=== PATIENT | female | born 1980 | race Caucasian/White ===

== ENCOUNTER → 2019-02-27 16:30 | Outpatient (CLI) | payer BC, SELFPAY ==
--- NOTE | 2019-02-27 16:42 | MRI_ITS ---
STUDY: MRI RIGHT MIDFOOT REASON FOR EXAM: Female, 38 years old. Dorsal foot pain x1 year. TECHNIQUE: Standardized fat and water weighted pulse sequences were obtained in all 3 orthogonal planes. COMPARISON: None. FINDINGS: The area of concern is marked, along the dorsal aspect of the first tarsometatarsal joint. There is dorsal spurring at the first tarsometatarsal joint. No joint effusion. Abnormal signal intensity in the subcutaneous tissues along the dorsal aspect of the joint, isointense to muscle on T1 and hypointense on T2-weighted imaging. This may represent fibrosis. There is mild deformity or pump due to the spur and soft tissue changes. TMT joints are otherwise unremarkable. Normal Lisfranc ligament. Tarsal articulations are unremarkable. Normal first through fifth metatarsi. Moderate effusion of the first metatarsophalangeal joint. Flexor and extensor tendons are intact. Normal subcutis adipose space. No soft tissue mass or cystic lesion. MRI/Lower Ext/No Jt/w/o IMPRESSION: 1. Moderate dorsal spurring at the first TMT joint in the area of concern, with associated mild soft tissue changes, possible fibrosis. 2. Moderate first MTP joint effusion. Electronically Signed: Myesha Rojas MD at 23:42 EDT Tel , Service support ,
== END ==
PROVIDERS: Family Provider Student in an Organized Health Care Education/Training Program; PCP Student in an Organized Health Care Education/Training Program; Referring Provider Podiatrist; Visit Provider Podiatrist
DX: R22.41 Localized swelling, mass and lump, right lower limb (principal)
CPT/HCPCS: 73718

== ENCOUNTER 2019-06-21 07:32 | Day surgery (SDC) | payer BC, SELFPAY ==
--- NOTE | 2019-06-21 | BON_PTH ---
PATIENT: CHRISTIANE ZHOU LOC: [facility] – [place] U#:[id number] AGE/SX: 39/F ROOM: RE06/21/[address]: Dr. Raoul Sanchez DPM : 1980 BED: DIS: 06/21/2019 SPEC #: [id number] RECD: 06/21/19 14:11 STATUS: MONI RECharlie #: [id number] RAYMOND: 06/21/19 00:[address]: Raoul Sanchez DEPT: SURGICAL PATHOLOGY RECD BY: Jey Junior ENTERED: 06/21/19 14:12 SP TYPE: Bone OTHR DR: Dr. Gonzales Borrero, DO Tissues: Bone of foot, NOS Procedures: Decalcification bone/plaque Surgery Specimen Level III HEADER OPERATION: Removal of bone spur from top of foot PRE-OP DIAGNOSIS: Right foot bone spur TISSUE SUBMITTED: Right foot bone spur MICROSCOPIC DIAGNOSIS Bone of right foot, biopsy: Osseocartilaginous tissue consistent with bone spur. AM:marques 06/27/19 MICROSCOPIC DESCRIPTION Slides are reviewed. GROSS DESCRIPTION Received in fixative is one container labeled with the patient's name and designated right foot bone spur. The specimen consists of multiple fragments of bone and soft tissue that in aggregate measure 2.5 x 2.5 x 0.3 cm. The entire specimen is submitted in one cassette after decalcification. / SJ:marques 06/21/19 TC:5 CPT: 07128, 77235
[2019-06-21 07:54] VITALS: BP 118/73; PULSE 88; RESP 15; TEMP 37.1; O2SAT 100; BMI 23.3
[2019-06-21 08:00] LABS: Internal QC Validated? YES +Cl - CLEAR BKGD; Pregnancy, Urine Negative Negative
[2019-06-21] MEDS: Lactated Ringers 1,000 ML 100 ML IV ×2 (08:05→11:20)
--- NOTE | 2019-06-21 09:50 | RAD_ITS ---
STUDY: X-RAY - RIGHT FOOT CLINICAL: Female, 39 years old. 1 IMAGE IN OR OF RIGHT FOOT FOR REMOVAL OF BONE SPUR. TECHNIQUE: Dose area product: 0.28 cGycm2 COMPARISON: None. FINDINGS: Intraoperative fluoroscopy of the midfoot. There is gross alignment. RAD/Foot 2 Views IMPRESSION: Fluoroscopic guidance for operative procedure. Please see procedural report. Electronically Signed: Diomedes Rogers MD (Brooks) at 11:50 EST , Service support ,
[2019-06-21] MEDS: Cefazolin 2 GM in 0.9% Normal Saline 100 ML IV (09:59)
[2019-06-21] MEDS: Bupivacaine Mpf 0.5% 30 ML VIAL (10:07)
--- NOTE | 2019-06-21 10:57 | DCINST_ITS ---
Discharge Diet: Light diet - advance as tolerated Discharge Activity: May Not Drive Weight Bearing Status: - - Limit weightbearing to right foot. Keep foot protected in cast boot when on foot. Keep extremity elevated above heart level: Right Leg - Keep right foot elevated for at least 50 minutes of every hour Call your doctor if your incision/area has: Continuous Slow Oozing, Sudden Increased Bleeding, Foul Smelling Discharge Call your doctor if you observe: Fever of 101 or Higher, Shortness of breath, Chest pain, Increased palpitations (irregular heartbeat), Calf discomfort, Uncontrolled pain Cleanse incision/area with: Do not get Incision Wet, Keep Dressing Clean & Dry Allergies/Adverse Reactions: Allergies No Known Allergies Allergy (Verified 06/21/19 07:52) Medications to take at Discharge Levonorgestrel-Ethin Estradiol [Levonor-Eth Estrad 0.15-0.03] 1 ea PO DAILY 06/14/19 Verapamil [Calan] 120 mg PO DAILY 06/14/19 Hydrocodone Bitart/Apap 5-325 [Eastman 5MG-325MG] 1 - 2 tab PO Q6H PRN PRN 3 Days #14 tab 06/21/19 The following prescriptions were given: Hydrocodone Bitart/Apap 5-325 [[place]man 5MG-325MG] 1 - 2 tab PO Q6H PRN PRN 3 Days #14 tab PRN Reason: Pain Prescription Printed Primary Care Physician: Gonzales Borrero DO [Primary Care Provider] - Test Results: Test results from this visit will be discussed in further detail at your follow- up appointment, if applicable. Please Follow Up With: Raoul Sanchez DPM - call office [phone] Dr. Sanchez at [phone] (cell) if needed When: 1 week, sooner if needed
--- NOTE | 2019-06-21 10:58 | PCM.OPRPT ---
Report of Operation Date of Procedure: 06/21/19 Pre-Operative Diagnosis: Exostosis mass dorsal right foot Post-Operative Diagnosis: Same Surgery/Procedure Performed:: Excision of exostosis from dorsal right foot discovery manager: yes - Dr. Teresa Montes Type of Anesthesia:: Local MAC Specimen's removed: Excised mass from dorsal right foot sent to pathology Description of Procedure: Indications: This is a 39 year old female with osteophyte/exostosis mass right dorsal 1st tarsometatarsal joint despite nonsurgical care. She has elected to undergo surgical intervention - exostectomy from dorsal foot. This was discussed with her in detail, reviewed the possible benefits vs risks, goals, expectations, alternative options, and typical healing/post op recovery. The consent forms were reviewed with her, and she freely signed them. All of her questions were answered. No guarantees or warranties were given nor implied. Operative Procedure: The patient was brought back into the operating room and was placed on the operating room table in the supine position. She was carefully secured to the operating room table with a safety belt around the waist. A time out was performed and the patient was properly identified and the surgical plan was confirmed. The patient received 2 grams of IV Ancef for antibiotic prophylaxis. A well padded pneumatic tourniquet was applied around the patient's right ankle. The patient received MAC anesthesia per the anesthesiologist, and a total of 11mL of 0.5% Bupivacaine plain was given as a regional nerve block around the heel surgical site. The right foot was scrubbed, prepped, draped in the usual aseptic fashion. The right foot was elevated for 3 minutes and the ankle pneumatic tourniquet was inflated to 250mmHg. Further attention was directed to the right foot. There was large dorsal exostosis mass to the dorsal 1st tarsometatarsal joint. An incision was made just medial to the extensor hallucis longus tendon. Careful dissection was completed through the subcutaneous tissue layer. The mass was identified. There was a soft tissue mass present dorsal to the exostosis consistent with a bursa. This was carefully dissected out and excised. It was sent to pathology as specimen. The prominent exostosis was noted and was resected using a powered sagittal saw and was passed from the surgical site. It was sent with the excised bursa mass as specimen. The 1st tarsometatarsal joint and surrounding tissues were noted to be otherwise healthy and viable. The mass was completely excised as noted above, this was confirmed with intra operative fluoroscopy, image was saved. the surgical site was stable. The site was flushed out with copious amounts of normal saline solution. The subcutaneous tissue was reapproximated using 4-0 Vicryl. The skin was reapproximated using 4-0 Monocryl. The pneumatic tourniquet was deflated (total tourniquet time was 28 minutes), and there was immediate return of warmth and perfusion to the foot and to all toes on the foot with normal temperature gradient and CFT < 2 seconds to all toes. Hemostasis was achieved. A dressing was applied which consisted of Betadine soaked adaptic, 4x4 gauze, Kerlix and marin bandage, being sure to apply it not to tight. The patient tolerated the above operative procedure well at the anesthesia well with no complication. The patient was transported to the recovery room with vital signs stable and in good condition. Post operative orders were placed. Post operative instructions were reviewed and dispensed verbal and written. Keep foot elevated for at least 50 minutes of every hour, keep dressing clean, dry and intact. Keep foot protected in CAM Walker when on foot. Prescription for [place] 5/325mg 1-2 tabs PO q 6 hours prn pain was prescribed. She is to follow up within 1 week or sooner if needed. Post op xrays of the right foot were obtained in the recovery room which confirmed excision of the mass. No complication or acute changes otherwise. Grafts/Implants Used: None - Complications None
[2019-06-21 11:01] VITALS: BP 111/69; BP 118/73; PULSE 102; RESP 16; TEMP 36.8; O2SAT 98
--- NOTE | 2019-06-21 11:10 | RAD_ITS ---
STUDY: X-RAY - RIGHT FOOT CLINICAL: Female, 39 years old. POST OP RIGHT FOOT FILMS IN PACU. REMOVAL BONE SPUR RIGHT FOOT. TECHNIQUE: Heel spur removal view(s) of the foot. COMPARISON: None. FINDINGS: Normal talus, calcaneus, and tarsal bones. Minimal spurring of the dorsal midfoot articulations. Normal metatarsi. Normal metatarsophalangeal joint of the great toe. Normal tibial and fibular sesamoid bones. Normal interphalangeal joint of the great toe. Normal phalanges of the great toe. Normal second through fifth metatarsophalangeal joints. Normal interphalangeal joints and phalanges of the lesser toes. The soft tissue structures are unremarkable. RAD/Foot min 3 Views IMPRESSION: No alignment or destructive bony process. Mild dorsal midfoot articulation arthrosis. Electronically Signed: Diomedes Rogers MD (Brooks) at 11:48 EST , Service support ,
[2019-06-21 11:15] VITALS: BP 116/86; BP 118/73; PULSE 100; RESP 16; O2SAT 99
[2019-06-21 11:30] VITALS: BP 117/76; BP 118/73; PULSE 86; RESP 16; TEMP 37.1; O2SAT 100
[2019-06-21 12:28] VITALS: BP 118/73; BP 120/83; PULSE 75; RESP 16; TEMP 36.9; O2SAT 100
== END 2019-06-21 12:43 | disposition home or self-care (01) ==
LOC: SDC 07:33 → AC 07:35
PROVIDERS: Anesthesiology; Family Provider Student in an Organized Health Care Education/Training Program; PCP Student in an Organized Health Care Education/Training Program; Referring Provider Podiatrist; Visit Provider Podiatrist
PROC: (CPT 28104; principal; 2019-06-21 08:45)
DX: M89.9 Disorder of bone, unspecified (principal); G43.009 Migraine without aura, not intractable, without status migrainosus; Z79.899 Other long term (current) drug therapy
CPT/HCPCS: 01480; 28104; 73620; 73630; 76000; 81025; 88304; 88311; J7120

== ENCOUNTER → 2022-09-09 | Outpatient (CLI) | payer BC, SELFPAY ==
--- NOTE | 2022-09-09 14:54 | CT_ITS ---
STUDY: CT FACIAL BONES WITHOUT CONTRAST REASON FOR EXAM: Female, 42 years old. CHRONIC SINUSITIS RADIATION DOSAGE (If Supplied By Facility): CTDIvol = ( 28.14 ) mGy, DLP = ( 770.87 ) mGycm TECHNIQUE: The patient was scanned in a multi detector CT scanner. Sagittal and coronal images were reconstructed. Individualized dose optimization techniques were used for this CT. COMPARISON: None. FINDINGS: Normal soft tissue structures. Normal orbital barragan and orbital contents. Normal nasal bones and anterior nasal spine. Normal facial bones. There is no demonstrated fracture. Severe diffuse mucosal thickening in left maxillary sinus and moderate mucosal thickening of the right.. Severe diffuse mucosal thickening of the anterior mid and posterior ethmoid air cells bilaterally. Moderate mucosal thickening of the sphenoid sinuses There is diminished pneumatization of the frontal sinuses consistent with normal variant. There is mucosal thickening on the left but no focal disease of the pneumatized portions of the right There is occlusion of the right ostiomeatal unit thickening. The left side is patent although mildly narrowed. Nasal septum is near midline in location There is prominence of the middle turbinates narrowing the nasal cavity CT/Sinus/Facial Bone IMPRESSION: Moderate to severe diffuse pansinusitis.. Findings as above Electronically Signed: Raoul Yepez MD at 21:35 EST ,
== END | disposition home or self-care (01) ==
LOC: CT 14:52
PROVIDERS: PCP Student in an Organized Health Care Education/Training Program; Visit Provider Otolaryngology Otolaryngology/Facial Plastic Surgery
DX: J32.8 Other chronic sinusitis (principal)
CPT/HCPCS: 70486

== ENCOUNTER 2022-10-17 06:46 | Day surgery (SDC) | payer BC, SELFPAY ==
--- NOTE | 2022-10-17 | ETH_PTH ---
PATIENT: CHRISTIANE ZHOU LOC: [facility] – [place] U#:[id number] AGE/SX: 42/F ROOM: RE10/17/[address]: Dr. Herbert Thomas MD : 1980 BED: DIS: 10/17/2022 SPEC #: [id number] RECD: 10/17/22 13:03 STATUS: MONI ALPESH #: [id number] RAYMOND: 10/17/22 00:[address]: Herbert Thomas DEPT: SURGICAL PATHOLOGY RECD BY: Jey Junior ENTERED: 10/17/22 13:03 SP TYPE: ETH TISS OTHR DR: Dr. Gonzales Borrero DO Tissues: A - Ethmoid sinus, NOS B - Ethmoid sinus, NOS Procedures: Decalcification bone/plaque Surgery Specimen Level IV HEADER OPERATION: Functional endoscopic sinus surgery, Navigation PRE-OP DIAGNOSIS: Chronic sinusitis TISSUE SUBMITTED: A ? Right sinus contents, B ? Left sinus contents MICROSCOPIC DIAGNOSIS A. Right sinus contents: Fragments of respiratory mucosa with acute and chronic inflammation and bone. B. Left sinus contents: Fragments of respiratory mucosa with acute and chronic inflammation and bone. ANDI:marques 10/20/2022 MICROSCOPIC DESCRIPTION Slides are reviewed. GROSS DESCRIPTION A - Received in fixative is one container labeled with the patient's name and designated right sinus contents. The specimen consists of multiple irregular, gritty and polypoid fragments of hernandez tissue that in aggregate measure 2.2 x 2.0 x 0.2 cm. The specimen is totally submitted in one cassette after decalcification. B - Received in fixative is one container labeled with the patient's name and designated left sinus contents. The specimen consists of multiple irregular fragments of hernandez, gritty tissue that in aggregate measure 3.0 x 2.5 x 0.2 cm. The specimen is totally submitted in one cassette after decalcification. / AM:marques 10/17/2022 TC:3 CPT: 43418 x2, 41151 x2
[2022-10-17 07:13] VITALS: BP 119/81; PULSE 76; RESP 16; TEMP 36.6; O2SAT 98; BMI 23.8
[2022-10-17 07:16] LABS: Internal QC Validated? YES +Cl - CLEAR BKGD; Pregnancy, Urine Negative Negative
[2022-10-17] MEDS: Lactated Ringers 1,000 ML 15 ML IV (07:16)
[2022-10-17] MEDS: Oxymetazoline 0.05% 1 SPRAY SPRAY.BTL NASAL (07:16)
--- NOTE | 2022-10-17 08:15 | PCM.DC.SUM ---
Providers Primary Care Physician: Dr. Gonzales Borrero DO Reason For Visit: FESS Medications at Discharge Home Medications verapamil 120 mg tablet 120 mg PO DAILY 06/14/19 Weight / BMI Weight Weight: 62.8 kg Body Mass Index (BMI) 23.8 ABG / Lab / Microbiology Data Laboratory: Laboratory Results - last 24 hr 10/17/22 07:10: Urine Test Negative D/C Instructions Discharge Diet: No restrictions Discharge Activity: - (NO nose blowing) Additional Instructions: Start irrigation 4-5x/day on 10/18/22 Please Follow Up With: Hrebert Thomas MD When: next week Meaningful Use Info Meaningful Use Diagnoses (Choose all that apply): None applicable Discharge Plan Admission Attending Provider: Herbert Thomas Primary Care Provider: Gonzales Borrero Discharge Orders/Prescriptions Prescriptions: No Action verapamil 120 MG tablet 120 mg PO DAILY Referrals / Follow Up: Gonzales Borrero DO [Primary Care Provider] - Disposition Disposition (needs filled in before D/C Order can be placed): Home, Self Care
--- NOTE | 2022-10-17 08:19 | OP.PCM_ITS ---
Report of Operation Date of Procedure: 10/17/22 Pre-Operative Diagnosis: chronic sinusitis with polyposis Post-Operative Diagnosis: same Surgery/Procedure Performed:: Bilateral total ethmoidectomy bilateral maxillary antrostomy use of navigation Surgeon: Herbert Thomas Type of Anesthesia: General Anesthesiologist: Robin Pickens Estimated Blood Loss (mL): minimal Description of Procedure: The patient was taken to the operating room on 10/17/2022. The patient was placed in the supine position on the operating table. The patient was given sufficient general endotracheal anesthesia. The head of bed was elevated 30 degrees. The navigation system was placed and verified per protocol and found to be accurate. 0 and 30 degrees rigid nasal endoscopes were used throughout the entire case. The middle turbinate uncinate process and polyps were injected with 1% lidocaine with epinephrine bilaterally. The right middle turbinate was medialized with a Davenport elevator. Polyp was removed from the middle meatus using a sinus shaver. A ball-tipped sinus seeker was placed into the patient's maxillary sinus. A backbiter was used to create the maxillary antrostomy. The uncinate process was taken down using a microdebrider. Next, the ethmoid bulla was opened with a small curette. Anterior and posterior ethmoidectomy were then carried out using curette, sinus shaver and 45 degree Blakesley Venkat forceps. Ethmoid cells were verified for relation to the skull base and orbit prior to being entered with the navigation system. I then placed Afrin pledgets into the sinonasal cavity. Next attention was turned to the left side. The middle turbinate was medialized with a Davenport elevator. A large polyp was removed from the middle meatus using a sinus shaver. The uncinate process was taken down using a sinus shaver. In doing so, the maxillary antrostomy was created. The ethmoid bulla was opened with a small curette. Anterior posterior ethmoidectomy were then carried out using a sinus shaver curette and Blakesley Venkat forceps. Ethmoid cells were verified for relation to the skull base and orbit prior to being entered with the navigation system. Hemostasis was then achieved using Afrin pledgets. The pledgets were then removed bilaterally and Alonso powder was applied bilaterally for absolute hemostasis. The procedure was then terminated. The patient was then awoken and brought to the recovery room in stable condition blood loss less than 30 cc replacement none. Sponge, needle, instrument count were correct at the end of the procedure.
[2022-10-17] MEDS: Oxymetazoline 0.05% 1 SPRAY SPRAY.BTL 15 SPRAY (08:50)
[2022-10-17] MEDS: Lidocaine 1% /Epi 1:100 (50ml) 50 ML VIAL (08:50)
[2022-10-17 09:41] VITALS: BP 119/81; BP 148/99; PULSE 95; RESP 18; TEMP 36.1; O2SAT 98
[2022-10-17 09:45] VITALS: BP 119/81; BP 144/93; PULSE 81; RESP 18; O2SAT 99
[2022-10-17 10:00] VITALS: BP 119/81; BP 144/90; PULSE 59; RESP 12; O2SAT 97
[2022-10-17 10:25] VITALS: BP 119/81; BP 144/87; PULSE 63; RESP 18; TEMP 36.1; O2SAT 100
[2022-10-17] MEDS: Ondansetron ODT 4 MG Tablet PO (11:07)
[2022-10-17 11:35] VITALS: BP 119/81; BP 143/78; PULSE 80; RESP 16; TEMP 36.2; O2SAT 95
== END 2022-10-17 11:46 | disposition home or self-care (01) ==
LOC: SDC 06:50 → AC 06:52
PROVIDERS: Anesthesiology; PCP Student in an Organized Health Care Education/Training Program; Referring Provider Otolaryngology; Visit Provider Otolaryngology
PROC: (CPT 31255; principal; 2022-10-17 07:50)
DX: J32.9 Chronic sinusitis, unspecified (principal); J33.9 Nasal polyp, unspecified; I10 Essential (primary) hypertension
CPT/HCPCS: 31255; 30110; 31256; 00160; 81025; 88305; 88311; J7120; J2405